=== PATIENT | female | born 1980 | race Two or more races ===

== ENCOUNTER → 2020-05-07 | Outpatient (CLI) | payer OTHER ==
[2016-05-07 22:56] VITALS: BP 115/80
[~2020-05-07] MED LIST: CIPR500T PO; CIPR500T94 PO; METR500T PO
--- NOTE | 2020-05-07 11:11 | KCIC ---
EXAM: LEFT FOOT 3 VIEWS. HISTORY: Left foot pain. COMPARISON: None. FINDINGS: Three views of the left foot are obtained. No fractures are identified. Alignment is normal. Joint spaces are maintained. There is a small plantar calcaneal spur. IMPRESSION: 1. Small plantar calcaneal spur. Electronically signed by: Paola Peña MD (05/07/2020 11:08 AM) [id number]
== END | disposition home or self-care (01) ==
LOC: KCIC 10:43
PROVIDERS: ATTEND Family Medicine
DX: M77.32 Calcaneal spur, left foot (principal); M79.672 Pain in left foot
CPT/HCPCS: 73630